=== PATIENT | male | born 1990 | race Two or more races ===

== ENCOUNTER 2022-04-10 14:23 | Emergency (ER) | payer SELFPAY ==
[2022-04-10] MEDS ORDERED: Dexamethasone 10 MG/ML VIAL ONE (15:17)
[2022-04-10] MEDS ORDERED: Ketorolac Tromethamine 30 MG/ML VIAL ONE (15:17)
== END 2022-04-10 15:45 | disposition home or self-care (01) ==
LOC: CSHERS 14:23
DX: M75.51 Bursitis of right shoulder (principal); F17.210 Nicotine dependence, cigarettes, uncomplicated
CPT/HCPCS: 96372; J1100; J1885

== ENCOUNTER 2023-01-06 06:38 | Emergency (ER) | payer BC ==
[2023-01-06] MEDS ORDERED: Ketorolac Tromethamine 30 MG/ML VIAL ONE (07:23)
[2023-01-06] MEDS ORDERED: predniSONE 20 MG TAB ONE (07:23)
[2023-01-06] MEDS ORDERED: Cyclobenzaprine 10 MG TAB ONE (07:24)
[2023-01-06] MEDS ORDERED: traMADol HCl 50 MG TAB ONE (07:24)
== END 2023-01-06 08:52 | disposition home or self-care (01) ==
LOC: CSHERS 06:38
DX: S33.5XXA Sprain of ligaments of lumbar spine, initial encounter (principal); K21.9 Gastro-esophageal reflux disease without esophagitis; F17.210 Nicotine dependence, cigarettes, uncomplicated; W10.8XXA Fall (on) (from) other stairs and steps, initial encounter
CPT/HCPCS: 72100; 96372; J1885; J7512